=== PATIENT | female | born 1990 | race Caucasian/White ===

== ENCOUNTER 2019-07-30 12:24 | Emergency (ER) | payer OTHER ==
[2019-07-30 12:38] VITALS: PULSE 98; RESP 18; TEMP 98.1
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
[2019-07-30] MEDS ORDERED: SODIUM CHLORIDE 0.9% 1,000 ML IV STA (13:18)
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
[2019-07-30 15:43] VITALS: BP 127/89
== END 2019-07-30 15:40 | disposition home or self-care (01) ==
LOC: EC 12:24
DX: O9A.212 Injury, poisoning and certain other consequences of external causes complicating pregnancy, second trimester (principal); R10.9 Unspecified abdominal pain; R55 Syncope and collapse; V49.49XA Driver injured in collision with other motor vehicles in traffic accident, initial encounter; Y92.410 Unspecified street and highway as the place of occurrence of the external cause; Z3A.25 25 weeks gestation of pregnancy
CPT/HCPCS: 76805; 99284

== ENCOUNTER 2019-10-30 21:00 | Outpatient (CLI) | payer OTHER ==
[2019-10-30 21:49] LABS: Anisocytosis Slight; Basophils # (A) 0.1 k/uL (0-0.2); Basophils % (A) 1 %; Eosinophils # (A) 0.2 k/uL (0-0.7); Eosinophils % (A) 1 %; HCT 31.3 % (34.0-46.0); HGB 10.2 gm/dL (11.4-16.0); Lymphocytes # (A) 2.4 k/uL (1.0-4.8); Lymphocytes % (A) 18 %; MCH 26.2 pg (25.0-35.0); MCHC 32.6 g/dL (31.0-37.0); MCV 80.4 fL (80.0-100.0); Mean Platelet Volume 7.5; Monocytes # (A) 0.6 k/uL (0-1.0); Monocytes % (A) 4 %; Neutrophils # (A) 9.8 k/uL (1.3-7.7); Neutrophils % (A) 75 %; Platelet Count 250 k/uL (150-450); RDW 16.7 % (11.5-15.5); WBC 13.1 k/uL (3.8-10.6)
[2019-10-30 21:56] LABS: ALT 10 U/L (4-34); AST 22 U/L (14-36); African American GFR (CKD) >90 (>60 ml/min/1.73 sqM); Blood Urea Nitrogen 6 mg/dL (7-17); LDH 446 U/L (313-618); Non-African American GFR(CKD) >90 (>60 ml/min/1.73 sqM); Uric Acid 5.9 mg/dL (3.7-7.4)
[2019-10-30 22:02] LABS: Appearance,Urine Clear (Clear); Bacteria,Urine Rare /hpf; Bilirubin,Urine Negative (Negative); Blood,Urine Trace (Negative); Color,Urine Yellow; Glucose,Urine (UA) Negative (Negative); Ketones,Urine Negative (Negative); Leukocyte Esterase,Urine Moderate (Negative); Mucus,Urine Rare /hpf; Nitrite,Urine Negative (Negative); Protein,Urine Trace (Negative); RBC,Urine 7 /hpf (0-5); Specific Gravity,Urine 1.012 (1.001-1.035); Squamous Epithelial Cell,Urine 3 /hpf (0-4); Urobilinogen,Urine <2.0 mg/dL (<2.0); WBC,Urine 8 /hpf (0-5)
[2019-10-30 22:33] VITALS: BP 123/100; PULSE 96; RESP 16
[2019-10-30 22:34] VITALS: TEMP 97.7
[2019-10-30 22:48] LABS: Protein/Creatinine Ratio,Urine 0.175
--- NOTE | 2019-11-16 11:41 | P.MSEPDOC ---
Presenting Problems - Arrival Data Date of Arrival on Unit: 10/30/19 Time of Arrival on Unit: 21:00 Mode of Transport: Ambulatory - Complaint OB-Reason for Admission/Chief Complaint: Possible Onset of Labor Comment: Patient presents for Rule out labor, unable to verbalize frequency in contractions, but that she has been uncomfortable all day. Medical History - Information : 2 Para: 1 Term: 1 : 0 Abortions: Spontaneous or Elective: 0 Number of Living Children: 1 - Gestational Age Gestational Age by LOURDES (wks/days): 38 Weeks and 2 Days - History Comment: Patient has a history of pre-eclampsia with her last Review of Systems - Review of Systems Constitutional: No problems Breast: No problems ENT: No problems Cardiovascular: No problems Respiratory: No problems Gastrointestinal: No problems Genitourinary: No problems Musculoskeletal: No problems Neurological: No problems Skin: No problems Vital Signs - Temperature Temperature: 97.7 F Temperature Source: Temporal Artery Scan - Pulse Pulse Oximetery Pulse Rate: 96 Pulse Assessment Method: Automatic Cuff - Respirations Respiratory Rate: 16 Oxygen Delivery Method: Room Air - Blood Pressure Sitting Blood Pressure: 123/100 Blood Pressure Mean: 107 Blood Pressure Source: Automatic Cuff Medical Screen Scoring (Pre) - Cervical Exam Dilation: 1-3 cm = 1 Membranes: Intact - Uterine Contractions Frequency: > 5 minutes apart = 1 Duration: > 40 seconds = 2 Intensity: N/A - Maternal Vital Signs Maternal Temperature: N/A Maternal Blood Pressure: Diastolic > 89 = 1 Signs of Preeclampsia: Headache = 1 Maternal Respirations: N/A - Maternal Trauma Maternal Trauma: N/A - Assessment - Baby A Baseline FHR: 135 Heart Rate - NICHD Category: Category I (Normal) = 0 NST: Reactive Position: N/A Station: N/A - Total Score - Baby A Total Score - Baby A: 6 - Total Score - Baby B Total Score - Baby B: 6 - Total Score - Baby C Total Score - Baby C: 6 - Level of Risk - Baby A Level of Risk - Baby A: Medium (6-9) - Level of Risk - Baby B Level of Risk - Baby B: Medium (6-9) - Level of Risk - Baby C Level of Risk - Baby C: Medium (6-9) Physician Notification (Pre) - Physician Notified Physician Notified Date: 10/30/19 Physician Notified Time: 21:22 New Order Received: Yes - Notification Comment Comment: Orders given to perform serial blood pressures, draw PIH labs, call physician with report, at 2211 orders given to discharge patient home with instructions, instruct patient on pre-eclampsia precautions, and to have patient call the office tomorrow to schedule an appt for thursday for a blood pressure check. Disposition - Disposition OB Disposition: Discharge to home, Written follow up instructions reviewed Discharge Date: 10/30/19 Discharge Time: 22:25 I agree with the RN Medical Screening Exam: Yes Risk & Benefit of care provided described in d/c instruction: Yes Diagnosis: OTHER SPECIFIED COMPLICATIONS OF LABOR AND DELIVERY
== END 2019-10-30 22:25 | disposition home or self-care (01) ==
LOC: FBPOP 21:00
PROVIDERS: ATTEND Obstetrics & Gynecology Obstetrics
DX: O75.89 Other specified complications of labor and delivery (principal); Z3A.38 38 weeks gestation of pregnancy
CPT/HCPCS: 59025; 82570; 84156; 82565; 83615; 84450; 84460; 84520; 84550; 85025; 81001; G0463; 99215

== ENCOUNTER 2019-11-02 06:01 | Inpatient (IN) | payer OTHER ==
[2019-11-02] MEDS ORDERED: LIDOCAINE 0.5% (PF) 5 MG/ML (50 ML SDV) SQ PRN (06:11)
[2019-11-02] MEDS ORDERED: OXYTOCIN 10 UNIT/ML 1 ML VIAL IM PRN (06:11)
[2019-11-02] MEDS ORDERED: AMPICILLIN 2,000 MG in SODIUM CHLORIDE 0.9% 100 ML IVPB STA (06:11)
[2019-11-02] MEDS ORDERED: CARBOPROST TROMETHAMINE 250 MCG/ML 1 ML AMP IM PRN (06:11)
[2019-11-02] MEDS ORDERED: TERBUTALINE 1 MG/ML VIAL SQ PRN (06:11)
[2019-11-02] MEDS ORDERED: METHYLERGONOVINE 0.2 MG/ML 1 ML AMP IM PRN (06:11)
[2019-11-02] MEDS ORDERED: OXYTOCIN 30 UNITS/500 ML NS 30 UNIT in SALINE 1 500ML.BAG IV SCH (06:15)
[2019-11-02 06:46] LABS: Anisocytosis Slight; Basophils # (A) 0.1 k/uL (0-0.2); Basophils % (A) 1 %; Eosinophils # (A) 0.2 k/uL (0-0.7); Eosinophils % (A) 1 %; HCT 31.3 % (34.0-46.0); Lymphocytes # (A) 2.9 k/uL (1.0-4.8); Lymphocytes % (A) 21 %; MCH 25.8 pg (25.0-35.0); MCV 80.5 fL (80.0-100.0); Mean Platelet Volume 7.5; Monocytes # (A) 0.6 k/uL (0-1.0); Monocytes % (A) 4 %; Neutrophils # (A) 10.2 k/uL (1.3-7.7); Neutrophils % (A) 72 %; Platelet Count 229 k/uL (150-450); RBC 3.89 m/uL (3.80-5.40); RDW 16.6 % (11.5-15.5); WBC 14.1 k/uL (3.8-10.6)
[2019-11-02] MEDS: LACTATED RINGERS 1,000 ML IV SCH ×2 (06:48→11:17)
--- NOTE | 2019-11-02 08:38 | P.HPOB ---
History of Present Illness H&P Date: 11/02/19 Chief Complaint: IUP at 38 and 5/sevenths weeks, gestational hypertension This is a pleasant 28-year-old 3 para 1011 at 38-5/7 weeks that presents to labor and delivery for induction of labor secondary to gestational hypertension. Patient was seen over the weekend with noted elevated blood pressures and a diagnosis of gestational hypertension was made. Patient notes headache in addition. Patient has a history of preeclampsia with her last . Patient has been receiving routine care with myself and has been essentially uncomplicated up to this point. On bloodwork patient has a blood type of B-, rubella immune, hepatitis B surface antigen negative, HIV negative, group beta strep was noted to be positive. Today patient notes good movement she denies loss of fluid or vaginal bleeding. Review of Systems Constitutional: Denies chills, Denies fatigue, Denies fever Ears, nose, mouth and throat: Reports headache Cardiovascular: Reports leg edema Respiratory: Denies dyspnea Gastrointestinal: Denies constipation, Denies diarrhea, Denies nausea, Denies vomiting Genitourinary: Reports Past Medical History Past Medical History: Asthma Additional Past Medical History / Comment(s): anemia kidney stones and kidney failure History of Any Multi-Drug Resistant Organisms: None Reported Additional Past Surgical History / Comment(s): kidneys stone removal Additional Past Anesthesia/Blood Transfusion Reaction / Comment(s): slow to wake up Past Psychological History: Anxiety, Depression Smoking Status: Never smoker Past Alcohol Use History: None Reported Past Drug Use History: None Reported - Past Family History Mother Family Medical History: Diabetes Mellitus, Hypertension Medications and Allergies Home Medications Medication Instructions Recorded Confirmed Type Pnv,Calcium 72/Iron/Folic Acid 1 each PO DAILY 09/08/19 11/02/19 History [ Plus Tablet] Albuterol Inhaler [Ventolin Hfa 1 - 2 puff INHALATION RT-Q6H PRN 11/02/19 11/02/19 History Inhaler] Allergies Allergy/AdvReac Type Severity Reaction Status Date / Time iodine Allergy Swelling Verified 11/02/19 06:11 shellfish derived Allergy Swelling Verified 11/02/19 06:11 Exam Osteopathic Statement: *. No significant issues noted on an osteopathic structural exam other than those noted in the History and Physical/Consult. 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 On cervical exam she is 3/50/-2 station amniotomy is performed and clear fluid is obtained. Results Result Diagrams: 11/02/19 06:35 Abnormal Lab Results - Last 24 Hours (Table) 11/02/19 Range/Units 06:35 WBC 14.1 H (3.8-10.6) k/uL Hgb 10.0 L (11.4-16.0) gm/dL Hct 31.3 L (34.0-46.0) % RDW 16.6 H (11.5-15.5) % Neutrophils # 10.2 H (1.3-7.7) k/uL Assessment and Plan (1) Term Current Visit: Yes Status: Acute Code(s): Z34.90 - ENCNTR FOR SUPRVSN OF NORMAL , UNSP, UNSP TRIMESTER SNOMED Code(s): 80069357 (2) Gestational HTN Current Visit: Yes Status: Acute Code(s): O13.9 - GESTATIONAL HTN W/O SIGNIFICANT PROTEINURIA, UNSP TRIMESTER SNOMED Code(s): 652968235 (3) Positive GBS test Current Visit: Yes Status: Acute Code(s): B95.1 - STREPTOCOCCUS, GROUP B, CAUSING DISEASES CLASSD ELSWHR SNOMED Code(s): 719940942 Plan: Patient is admitted to labor and delivery for induction of labor secondary to gestational hypertension. Pitocin is started per hospital protocol. Patient does desire epidural once contractions are uncomfortable. Anticipate spontaneous vaginal delivery later today.
[2019-11-02] MEDS: BUTORPHANOL 1 MG/ML 1 ML VIAL IV PRN ×2 (09:14→11:12)
[2019-11-02] MEDS: AMPICILLIN 1,000 MG in SODIUM CHLORIDE 0.9% 50 ML IVPB SCH ×2 (10:41→16:48)
[2019-11-02] MEDS ORDERED: fentaNYL (PF) 50 MCG/ML 5 ML AMP ONE (12:24)
[2019-11-02] MEDS ORDERED: SODIUM CHLORIDE 0.9% 100 ML BAG ONE (12:24)
[2019-11-02] MEDS ORDERED: ROPIVACAINE 5MG/ML 20ML VIAL ONE (12:24)
[2019-11-02] MEDS ORDERED: diphenhydrAMINE 50 MG/ML 1 ML VIAL IVP PRN ×2 (14:01)
[2019-11-02] MEDS ORDERED: SIMETHICONE 80 MG CHEWABLE PO PRN (14:01)
[2019-11-02] MEDS ORDERED: HYDROCORTISONE 2.5% RECTAL CREAM 30 GM TUBE RECTAL PRN (14:01)
[2019-11-02] MEDS ORDERED: WITCH HAZEL 1 EACH MED..PAD TOPICAL PRN (14:01)
[2019-11-02] MEDS ORDERED: ZOLPIDEM 5 MG TAB PO PRN (14:01)
[2019-11-02] MEDS ORDERED: HYDROcodone/APAP 5-325MG 1 EACH TAB PO PRN (14:01)
[2019-11-02] MEDS ORDERED: ACETAMINOPHEN TAB 325 MG TAB PO PRN (14:01)
[2019-11-02] MEDS ORDERED: LANOLIN CREAM 5 GM TUBE TOPICAL PRN (14:01)
[2019-11-02] MEDS ORDERED: diphenhydrAMINE 50 MG CAP PO PRN (14:01)
[2019-11-02] MEDS ORDERED: diphenhydrAMINE 25 MG CAP PO PRN (14:01)
[2019-11-02] MEDS ORDERED: BENZOCAINE/MENTHOL SPRAY 1 GM/SPRAY AEROSOL TOPICAL PRN (14:01)
--- NOTE | 2019-11-02 14:01 | P.PROBDLV ---
Vaginal Delivery Note - . Vaginal Delivery Note: This pleasant 28-year-old 3 para 1011 presented to labor and delivery at 38-5/7 weeks for induction of labor secondary to gestational hypertension. Patient had preeclampsia with her prior delivery in addition. Patient was admitted to labor and delivery Pitocin induction of labor was begun per hospital protocol. Patient underwent amniotomy and clear fluid was obtained. Patient became uncomfortable and requested epidural placement. Epidural was placed by the anesthesia department after 2 attempts. Patient progressed to complete began pushing and had normal spontaneous vaginal delivery of a viable female at 1337, weight of 6 lbs. 7 oz. with Apgars of 9 and 9 at one and 5 mins respectively. Patient did sustain a second degree vaginal laceration during delivery this was repaired in the usual fashion with a 3-0 Rapide. After delivery of the placenta a large gush of bleeding was noted therefore Hemabate was ordered/given for uterine uterine atony. A red rubber catheter was then used to drain the bladder reportedly 200 mL of clear yellow urine. The uterus was noted to be firm and below the umbilicus and minimal bleeding was noted. Estimated blood loss 300 mL Patient and infant tolerated delivery well and are resting comfortably
[2019-11-02] MEDS ORDERED: OXYTOCIN 20 UNITS/1000 ML NS 1,000 ML IV SCH (14:15)
[2019-11-02] MEDS: IBUPROFEN 600 MG TAB PO PRN (18:35)
[2019-11-02] MEDS ORDERED: SENNOSIDES-DOCUSATE SODIUM 1 EACH TAB PO SCH (20:00)
[2019-11-03] MEDS: IBUPROFEN 600 MG TAB PO PRN ×2 (00:15→07:58)
[2019-11-03] MEDS ORDERED: Rhogam IMMUNE GLOBULIN 1,500 UNIT/1 ML IM ONE (00:17)
--- NOTE | 2019-11-03 05:46 | P.DS ---
Providers Date of admission: 11/02/19 06:01 Expected date of discharge: 11/03/19 Attending physician: Mei Pablo Primary care physician: Stated None - Discharge Diagnosis(es) (1) Term Current Visit: Yes Status: Acute (2) Gestational HTN Current Visit: Yes Status: Acute (3) Positive GBS test Current Visit: Yes Status: Acute (4) Status post vaginal delivery Current Visit: Yes Status: Acute Hospital Course: This is a pleasant 28-year-old 3 para 1011 at 38-5/7 weeks that presents to labor and delivery for induction of labor secondary to gestational hypertension. Patient has a history of preeclampsia with her prior . Patient's care has been essentially uncomplicated up until this point when elevated blood pressures were noted. Patient was admitted to labor and delivery and Pitocin induction of labor was begun per hospital protocol. Patient underwent amniotomy and clear fluid was obtained. Patient progressed through labor eventually becoming comfortable and requesting epidural placement. After 2 attempts epidural was placed without difficulty by the anesthesia department. Patient progressed through labor became complete began pushing and had a normal spontaneous vaginal delivery of a viable female infant at 1337, weight of 6 lbs. 7 oz. with Apgars of 9 and 9 at one and 5 minutes respectively. Patient did sustain a second-degree vaginal laceration which was repaired in the usual fashion with 3-0 Rapide. Patient's post course has been uneventful. She is ambulating and voiding without difficulty. She is breast- feeding without difficulty. She states her pain is well-controlled. She does wish discharge home at 24 hours if the infant is to discharge at the same time. Patient Condition at Discharge: Good Plan - Discharge Summary New Discharge Prescriptions: No Action Pnv,Calcium 72/Iron/Folic Acid [ Plus Tablet] 1 each PO DAILY Albuterol Inhaler [Ventolin Hfa Inhaler] 1 - 2 puff INHALATION RT-Q6H PRN PRN Reason: Shortness Of Breath Discharge Medication List Pnv,Calcium 72/Iron/Folic Acid [ Plus Tablet] 1 each PO DAILY 09/08/19 [History] Albuterol Inhaler [Ventolin Hfa Inhaler] 1 - 2 puff INHALATION RT-Q6H PRN 11/02/19 [History] Follow up Appointment(s)/Referral(s): Mei Pablo DO [Doctor of Osteopathic Medicine] - 4 Weeks Patient Instructions/Handouts: Vaginal Delivery (DC), Vaginal Delivery (GEN) Discharge Disposition: HOME SELF-CARE
[2019-11-03 07:58] LABS: Anisocytosis Slight; Basophils # (A) 0.1 k/uL (0-0.2); Basophils % (A) 0 %; Eosinophils # (A) 0.1 k/uL (0-0.7); Eosinophils % (A) 1 %; HCT 25.5 % (34.0-46.0); Hypochromasia Slight; Lymphocytes # (A) 2.6 k/uL (1.0-4.8); Lymphocytes % (A) 19 %; MCH 25.7 pg (25.0-35.0); MCHC 31.8 g/dL (31.0-37.0); MCV 80.7 fL (80.0-100.0); Mean Platelet Volume 7.8; Monocytes # (A) 0.5 k/uL (0-1.0); Monocytes % (A) 4 %; Neutrophils # (A) 10.2 k/uL (1.3-7.7); Neutrophils % (A) 75 %; Platelet Count 199 k/uL (150-450); Poikilocytosis Slight; RBC 3.16 m/uL (3.80-5.40); RDW 16.6 % (11.5-15.5); WBC 13.6 k/uL (3.8-10.6)
[2019-11-03 08:01] LABS: HGB 8.1 gm/dL (11.4-16.0)
[2019-11-03 08:41] VITALS: BP 128/79; PULSE 77; RESP 16; TEMP 97.8
[2019-11-03] MEDS ORDERED: PRENATAL VIT-IRON-FOLIC ACID 1 EACH CAP PO SCH (09:00)
== END 2019-11-03 17:28 | disposition home or self-care (01) | DRG 807 ==
LOC: 4FBP 06:01
PROVIDERS: ADMIT Obstetrics & Gynecology Obstetrics; ATTEND Obstetrics & Gynecology Obstetrics
PROC: 3E0R3BZ Introduction of Anesthetic Agent into Spinal Canal, Percutaneous Approach (ICD-10-PCS; principal; 2019-11-02)
PROC: 00HU33Z Insertion of Infusion Device into Spinal Canal, Percutaneous Approach (ICD-10-PCS; principal; 2019-11-02)
PROC: 3E033VJ Introduction of Other Hormone into Peripheral Vein, Percutaneous Approach (ICD-10-PCS; principal; 2019-11-02)
PROC: 10907ZC Drainage of Amniotic Fluid, Therapeutic from Products of Conception, Via Natural or Artificial Opening (ICD-10-PCS; principal; 2019-11-02)
PROC: 10E0XZZ Delivery of Products of Conception, External Approach (ICD-10-PCS; principal; 2019-11-02)
PROC: 0KQM0ZZ Repair Perineum Muscle, Open Approach (ICD-10-PCS; principal; 2019-11-02)
PROC: 3E0234Z Introduction of Serum, Toxoid and Vaccine into Muscle, Percutaneous Approach (ICD-10-PCS; 2019-11-03)
DX: O13.4 Gestational [pregnancy-induced] hypertension without significant proteinuria, complicating childbirth (principal); Z37.0 Single live birth; J45.909 Unspecified asthma, uncomplicated; O99.824 Streptococcus B carrier state complicating childbirth; O70.1 Second degree perineal laceration during delivery; O62.2 Other uterine inertia; O26.893 Other specified pregnancy related conditions, third trimester; Z67.21 Type B blood, Rh negative; O99.52 Diseases of the respiratory system complicating childbirth; O99.62 Diseases of the digestive system complicating childbirth; K21.9 Gastro-esophageal reflux disease without esophagitis; Z3A.38 38 weeks gestation of pregnancy; Z79.899 Other long term (current) drug therapy; Z87.442 Personal history of urinary calculi; Z86.59 Personal history of other mental and behavioral disorders; Z86.2 Personal history of diseases of the blood and blood-forming organs and certain disorders involving the immune mechanism; Z88.8 Allergy status to other drugs, medicaments and biological substances; Z91.013 Allergy to seafood; Z82.49 Family history of ischemic heart disease and other diseases of the circulatory system; Z83.3 Family history of diabetes mellitus
CPT/HCPCS: 85025; 85461; 86850; 86900; 86901

== ENCOUNTER 2019-11-12 21:22 | Emergency (ER) | payer OTHER ==
[2019-11-12 22:11] VITALS: RESP 16
--- NOTE | 2019-11-12 22:32 | ED ---
General Adult HPI - General Chief complaint: Upper Respiratory Infection Stated complaint: Cough Time Seen by Provider: 11/12/19 21:34 Source: patient, RN notes reviewed, old records reviewed Mode of arrival: ambulatory Limitations: no limitations - History of Present Illness Initial comments: 28-year-old female patient past history significant for asthma as well as having a vaginal delivery 1 week ago presents to ED for chief complaint of cough. Mother reports that her child has a cough which she believes that she quadrant as well. Patient reports that she did have what she describes as early preeclampsia forced induced her prior to her delivery. She reports that she has had cough for the last 3 days since states that after coughing she is short of breath. Patient does report asthma history. Denies abdominal pain, dysuria. Denies any vaginal discharge. Pt reports that the cough is giving her a mild generalized headache, Denies changes in vision, states that chief complaint is cough. Denies any other complaints. Systemic: Pt denies fatigue, fever/chills, rash. Pt denies weakness, night sweats, weight loss. Neuro: Pt denies visual disturbances, syncope or pre-syncope. HEENT: Pt denies ocular discharge or irritation, otalgia, rhinorrhea, pharyngitis or notable lymphadenopathy. Cardiopulmonary: Pt denies chest pain, heart palpitations, dyspnea on exertion. Abdominal/GI: Pt denies abdominal pain, n/v/d. : Pt denies dysuria, burning w/ urination, frequency/urgency. Denies new onset urinary or bowel incontinence. MSK: Pt denies myalgia, loss of strength or function in extremities. Neuro: Pt denies new onset weakness, paresthesias. - Related Data Home Medications Medication Instructions Recorded Confirmed Pnv,Calcium 72/Iron/Folic Acid 1 each PO DAILY 09/08/19 11/02/19 [ Plus Tablet] Albuterol Inhaler [Ventolin Hfa 1 - 2 puff INHALATION RT-Q6H PRN 11/02/19 11/02/19 Inhaler] Previous Rx's Medication Instructions Recorded Albuterol Inhaler [Ventolin Hfa 1 - 2 puff INHALATION Q4-6H PRN #1 11/13/19 Inhaler] inhaler Amoxicillin/Potassium Clav 1 each PO Q12HR 7 Days #14 tab 11/13/19 [Augmentin 875-125 Tablet] Allergies Allergy/AdvReac Type Severity Reaction Status Date / Time iodine Allergy Swelling Verified 11/12/19 21:24 shellfish derived Allergy Swelling Verified 11/12/19 21:24 Review of Systems ROS Statement: Those systems with pertinent positive or pertinent negative responses have been documented in the HPI. ROS Other: All systems not noted in ROS Statement are negative. Past Medical History Past Medical History: Asthma Additional Past Medical History / Comment(s): anemia kidney stones and kidney failure History of Any Multi-Drug Resistant Organisms: None Reported Additional Past Surgical History / Comment(s): kidneys stone removal Additional Past Anesthesia/Blood Transfusion Reaction / Comment(s): slow to wake up Past Psychological History: Anxiety, Depression Smoking Status: Never smoker Past Alcohol Use History: None Reported Past Drug Use History: None Reported - Past Family History Mother Family Medical History: Diabetes Mellitus, Hypertension General Exam - General Exam Comments Initial Comments: Constitutional: NAD, AOX3, Pt has pleasant affect. HEENT: NC/AT, trachea midline, neck supple, no lymphadenopathy. Posterior pharynx non erythematous, without exudates. External ears appear normal, without discharge. Mucous membranes moist. Eyes PERRLA, EOM intact. There is no scleral icterus. No pallor noted. Cardiopulmonary: RRR, no murmurs, rubs or gallops, no JVD noted. Lungs CTAB in anterior and posterior mosley. No peripheral edema. Abdominal exam: Abdomen soft and non-distended. Abdomen non-tender to palpation in all 4 quadrants. Bowel sounds active in LLQ. No hepatosplenomegaly. No ecchymosis Neuro: CN II-XII intact. No nuchal rigidity. No raccon eyes, no bray sign, no hemotympanum. No cervical spinal tenderness. NIH 0. MSK: No posterior calf tenderness bilaterally, homans sign negative bilaterally. Posterior tibialis and radial pulse +2 bilaterally. Sensation intact in upper and lower extremities. Full active ROM in upper and lower extremities, 5/5 stregnth. Limitations: no limitations Course Vital Signs 11/12/19 11/12/19 11/12/19 21:24 22:07 22:10 Temperature 98.3 F Pulse Rate 106 H 102 H Respiratory 18 18 16 Rate Blood Pressure 148/94 120/73 O2 Sat by Pulse 96 98 Oximetry 11/13/19 11/13/19 00:08 00:09 Temperature 98 F 98 F Pulse Rate 100 100 Respiratory 16 16 Rate Blood Pressure 125/78 125/78 O2 Sat by Pulse 98 98 Oximetry Medical Decision Making - Medical Decision Making 28-year-old female patient past history significant for asthma as well as having a vaginal delivery 1 week ago presents to ED for chief complaint of cough. Mother reports that her child has a cough which she believes that she quadrant as well. Patient reports that she did have what she describes as early preeclampsia forced induced her prior to her delivery. She reports that she has had cough for the last 3 days since states that after coughing she is short of breath. Patient does report asthma history. Denies abdominal pain, dysuria. Denies any vaginal discharge. Pt reports that the cough is giving her a mild generalized headache, Denies changes in vision, states that chief complaint is cough. Denies any other complaints. Patient vital signs this displayed mild tachycardia, temp discharge vital signs are stable. Physical exam dentist acute pathology. Lungs are clear to auscultation. Laboratory investigations are obtained. Leukocytosis of 14. D-dimer is negative. UA did reveal 11 red cells 35 white blood cells. Chest x-ray displayed small patchy nodular infiltrate left upper lobe. EKG is nonischemic. Patient be initiated on Augmentin. She'll be discharged to follow up with primary care provider and OB chest every morning tomorrow. Return to ER if condition worsens. Case dsicussed with Dr. Lucero. - Lab Data Result diagrams: 11/12/19 23:10 11/12/19 23:10 Lab Results 11/12/19 11/12/19 11/12/19 Range/Units 23:10 23:10 23:10 WBC 14.1 H (3.8-10.6) k/uL RBC 4.29 (3.80-5.40) m/uL Hgb 10.8 L (11.4-16.0) gm/dL Hct 34.5 (34.0-46.0) % MCV 80.5 (80.0-100.0) fL MCH 25.3 (25.0-35.0) pg MCHC 31.4 (31.0-37.0) g/dL RDW 16.1 H (11.5-15.5) % Plt Count 336 (150-450) k/uL Neutrophils % 75 % Lymphocytes % 17 % Monocytes % 4 % Eosinophils % 2 % Basophils % 1 % Neutrophils # 10.6 H (1.3-7.7) k/uL Lymphocytes # 2.4 (1.0-4.8) k/uL Monocytes # 0.6 (0-1.0) k/uL Eosinophils # 0.3 (0-0.7) k/uL Basophils # 0.1 (0-0.2) k/uL Hypochromasia Slight Anisocytosis Slight D-Dimer 0.49 (<0.60) mg/L FEU Sodium 137 (137-145) mmol/L Potassium 4.1 (3.5-5.1) mmol/L Chloride 104 (98-107) mmol/L Carbon Dioxide 21 L (22-30) mmol/L Anion Gap 12 mmol/L BUN 10 (7-17) mg/dL Creatinine 0.69 (0.52-1.04) mg/dL Est GFR (CKD-EPI)AfAm >90 (>60 ml/min/1.73 sqM) Est GFR (CKD-EPI)NonAf >90 (>60 ml/min/1.73 sqM) Glucose 110 H (74-99) mg/dL Calcium 9.5 (8.4-10.2) mg/dL Total Bilirubin 0.5 (0.2-1.3) mg/dL AST 28 (14-36) U/L ALT 21 (4-34) U/L Alkaline Phosphatase 128 H (38-126) U/L Troponin I (0.000-0.034) ng/mL Total Protein 7.7 (6.3-8.2) g/dL Albumin 4.2 (3.5-5.0) g/dL Urine Color Urine Appearance (Clear) Urine pH (5.0-8.0) Ur Specific [place] (1.001-1.035) Urine Protein (Negative) Urine Glucose (UA) (Negative) Urine Ketones (Negative) Urine Blood (Negative) Urine Nitrite (Negative) Urine Bilirubin (Negative) Urine Urobilinogen (<2.0) mg/dL Ur Leukocyte Esterase (Negative) Urine RBC (0-5) /hpf Urine WBC (0-5) /hpf Ur Squamous Epith Cells (0-4) /hpf Urine Bacteria (None) /hpf Urine Mucus (None) /hpf 11/12/19 11/13/19 Range/Units 23:10 00:09 WBC (3.8-10.6) k/uL RBC (3.80-5.40) m/uL Hgb (11.4-16.0) gm/dL Hct (34.0-46.0) % MCV (80.0-100.0) fL MCH (25.0-35.0) pg MCHC (31.0-37.0) g/dL RDW (11.5-15.5) % Plt Count (150-450) k/uL Neutrophils % % Lymphocytes % % Monocytes % % Eosinophils % % Basophils % % Neutrophils # (1.3-7.7) k/uL Lymphocytes # (1.0-4.8) k/uL Monocytes # (0-1.0) k/uL Eosinophils # (0-0.7) k/uL Basophils # (0-0.2) k/uL Hypochromasia Anisocytosis D-Dimer (<0.60) mg/L FEU Sodium (137-145) mmol/L Potassium (3.5-5.1) mmol/L Chloride (98-107) mmol/L Carbon Dioxide (22-30) mmol/L Anion Gap mmol/L BUN (7-17) mg/dL Creatinine (0.52-1.04) mg/dL Est GFR (CKD-EPI)AfAm (>60 ml/min/1.73 sqM) Est GFR (CKD-EPI)NonAf (>60 ml/min/1.73 sqM) Glucose (74-99) mg/dL Calcium (8.4-10.2) mg/dL Total Bilirubin (0.2-1.3) mg/dL AST (14-36) U/L ALT (4-34) U/L Alkaline Phosphatase (38-126) U/L Troponin I <0.012 (0.000-0.034) ng/mL Total Protein (6.3-8.2) g/dL Albumin (3.5-5.0) g/dL Urine Color Yellow Urine Appearance Clear (Clear) Urine pH 6.5 (5.0-8.0) Ur Specific [place] 1.012 (1.001-1.035) Urine Protein Trace H (Negative) Urine Glucose (UA) Negative (Negative) Urine Ketones Negative (Negative) Urine Blood Moderate H (Negative) Urine Nitrite Negative (Negative) Urine Bilirubin Negative (Negative) Urine Urobilinogen <2.0 (<2.0) mg/dL Ur Leukocyte Esterase Large H (Negative) Urine RBC 11 H (0-5) /hpf Urine WBC 35 H (0-5) /hpf Ur Squamous Epith Cells 3 (0-4) /hpf Urine Bacteria Rare H (None) /hpf Urine Mucus Rare H (None) /hpf - EKG Data -: EKG Interpreted by Me (and Dr. Lucero) EKG Comments: Ventricular rate 86, MN interval 138, QRS 90, QT/QTC 368/440. Normal sinus rhythm, normal EKG, no concern for acute ischemia. Disposition Clinical Impression: Community acquired pneumonia Disposition: HOME SELF-CARE Condition: Stable Instructions (If sedation given, give patient instructions): Community Acquired Pneumonia (ED) Additional Instructions: Take antibiotics as directed. Follow up with primary care provider tomorrow. Return to ER if condition worsens in any way. Prescriptions: Amoxicillin/Potassium Clav [Augmentin 875-125 Tablet] 1 each PO Q12HR 7 Days #14 tab Albuterol Inhaler [Ventolin Hfa Inhaler] 1 - 2 puff INHALATION Q4-6H PRN #1 inhaler PRN Reason: Cough Is patient prescribed a controlled substance at d/c from ED?: No Referrals: Dmitriy Ramos MD [Primary Care Provider] - 1-2 days
--- NOTE | 2019-11-12 22:48 | XR ---
EXAMINATION TYPE: XR chest 2V DATE OF EXAM: 11/12/2019 COMPARISON: NONE HISTORY: Cough TECHNIQUE: 2 views FINDINGS: Heart and mediastinum are normal. There is a mild nodular infiltrate in the lateral left up per lobe. The other lung mosley are clear. There are no hilar masses. There is no pleural effusion. B shaina thorax is intact. IMPRESSION: Small patch of nodular infiltrate left upper lobe measures overall 4 x 2 cm. Normal heart .
[2019-11-12 23:19] LABS: Anisocytosis Slight; Basophils # (A) 0.1 k/uL (0-0.2); Basophils % (A) 1 %; Eosinophils # (A) 0.3 k/uL (0-0.7); Eosinophils % (A) 2 %; HCT 34.5 % (34.0-46.0); HGB 10.8 gm/dL (11.4-16.0); Hypochromasia Slight; Lymphocytes # (A) 2.4 k/uL (1.0-4.8); Lymphocytes % (A) 17 %; MCH 25.3 pg (25.0-35.0); MCHC 31.4 g/dL (31.0-37.0); MCV 80.5 fL (80.0-100.0); Mean Platelet Volume 7.7; Monocytes # (A) 0.6 k/uL (0-1.0); Monocytes % (A) 4 %; Neutrophils # (A) 10.6 k/uL (1.3-7.7); Neutrophils % (A) 75 %; Platelet Count 336 k/uL (150-450); RBC 4.29 m/uL (3.80-5.40); RDW 16.1 % (11.5-15.5); WBC 14.1 k/uL (3.8-10.6)
[2019-11-12 23:34] LABS: ALT 21 U/L (4-34); AST 28 U/L (14-36); African American GFR (CKD) >90 (>60 ml/min/1.73 sqM); Albumin 4.2 g/dL (3.5-5.0); Alkaline Phosphatase 128 U/L (38-126); Anion Gap 12 mmol/L; Blood Urea Nitrogen 10 mg/dL (7-17); Calcium 9.5 mg/dL (8.4-10.2); Carbon Dioxide 21 mmol/L (22-30); Chloride 104 mmol/L (98-107); Glucose 110 mg/dL (74-99); Non-African American GFR(CKD) >90 (>60 ml/min/1.73 sqM); Potassium 4.1 mmol/L (3.5-5.1); Sodium 137 mmol/L (137-145); Total Bilirubin 0.5 mg/dL (0.2-1.3); Total Protein 7.7 g/dL (6.3-8.2)
[2019-11-12] MEDS ORDERED: AMOXIC-POT CLAV 875-125MG 1 EACH TAB PO STA (23:36)
[2019-11-12] MEDS ORDERED: AMOXIC-POT CLAV 875MG STARTER PACK 2 TAB BTL PO STA (23:36)
[2019-11-13 00:09] VITALS: BP 125/78; PULSE 100; TEMP 98
[2019-11-13 00:17] LABS: Appearance,Urine Clear (Clear); Bacteria,Urine Rare /hpf; Bilirubin,Urine Negative (Negative); Blood,Urine Moderate (Negative); Color,Urine Yellow; Glucose,Urine (UA) Negative (Negative); Ketones,Urine Negative (Negative); Leukocyte Esterase,Urine Large (Negative); Mucus,Urine Rare /hpf; Nitrite,Urine Negative (Negative); PH, Urine 6.5 (5.0-8.0); Protein,Urine Trace (Negative); RBC,Urine 11 /hpf (0-5); Specific Gravity,Urine 1.012 (1.001-1.035); Squamous Epithelial Cell,Urine 3 /hpf (0-4); Urobilinogen,Urine <2.0 mg/dL (<2.0); WBC,Urine 35 /hpf (0-5)
== END 2019-11-13 00:29 | disposition home or self-care (01) ==
LOC: EC 21:22
DX: O99.53 Diseases of the respiratory system complicating the puerperium (principal); J18.9 Pneumonia, unspecified organism; O99.13 Other diseases of the blood and blood-forming organs and certain disorders involving the immune mechanism complicating the puerperium; D72.829 Elevated white blood cell count, unspecified; O90.89 Other complications of the puerperium, not elsewhere classified; R00.0 Tachycardia, unspecified; R31.9 Hematuria, unspecified; R82.81 Pyuria; J45.909 Unspecified asthma, uncomplicated; Z91.013 Allergy to seafood; Z91.048 Other nonmedicinal substance allergy status; Z79.899 Other long term (current) drug therapy; Z82.49 Family history of ischemic heart disease and other diseases of the circulatory system
CPT/HCPCS: 36415; 71046; 80053; 81001; 84484; 85025; 85379; 87077; 87086; 87186; 93005; 99285

== ENCOUNTER → 2020-02-13 | Outpatient (CLI) | payer OTHER ==
[~2020-02-13] MED LIST: ACETAMINOPHEN TAB 500 MG TAB ONE
[2020-02-13 08:53] LABS: Anisocytosis Slight; Basophils % (A) 0 %; Eosinophils # (A) 0.3 k/uL (0-0.7); Eosinophils % (A) 2 %; HCT 35.6 % (34.0-46.0); HGB 11.2 gm/dL (11.4-16.0); Hypochromasia Marked; Lymphocytes # (A) 3.5 k/uL (1.0-4.8); Lymphocytes % (A) 29 %; MCHC 31.6 g/dL (31.0-37.0); Mean Platelet Volume 7.2; Microcytosis Slight; Monocytes # (A) 0.5 k/uL (0-1.0); Monocytes % (A) 4 %; Neutrophils # (A) 7.6 k/uL (1.3-7.7); Neutrophils % (A) 64 %; Platelet Count 309 k/uL (150-450); RBC 4.68 m/uL (3.80-5.40); RDW 16.4 % (11.5-15.5)
== END | disposition home or self-care (01) ==
LOC: LABPAT 08:22
PROVIDERS: ATTEND Obstetrics & Gynecology Obstetrics
DX: Z01.818 Encounter for other preprocedural examination (principal)
CPT/HCPCS: 36415; 85025

== ENCOUNTER 2020-02-14 07:56 | Day surgery (SDC) | payer OTHER ==
[2020-02-13 08:56] VITALS: BMI 38.2
--- NOTE | 2020-02-13 10:24 | P.HPOB ---
History of Present Illness H&P Date: 02/13/20 Chief Complaint: undesired fertility This is a that presents for permanent sterilization with tubal ligation. she states she is done with childbearing and desires tubal ligation. she recently has a of a healthy female on 11/01. Review of Systems Constitutional: Denies chills, Denies fatigue, Denies fever Ears, nose, mouth and throat: Denies headache Cardiovascular: Denies edema Respiratory: Denies dyspnea Gastrointestinal: Denies nausea, Denies vomiting Genitourinary: Denies Past Medical History Past Medical History: Asthma, GERD/Reflux Additional Past Medical History / Comment(s): anemia, Hx kidney stones and ki dney failure x2, IBS, herniated discs. History of Any Multi-Drug Resistant Organisms: None Reported Additional Past Surgical History / Comment(s): kidneys stone removal Past Anesthesia/Blood Transfusion Reactions: Previous Problems w/ Anesthesia Additional Past Anesthesia/Blood Transfusion Reaction / Comment(s): slow to wake up Past Psychological History: Anxiety Smoking Status: Former smoker Past Alcohol Use History: Occasional Additional Past Alcohol Use History / Comment(s): quit 5 yrs ago (2014), started smoking age 17, smoked 1-2 cigarettes/day. Past Drug Use History: None Reported - Past Family History Mother Family Medical History: Diabetes Mellitus, Hypertension Medications and Allergies Home Medications Medication Instructions Recorded Confirmed Type Pnv,Calcium 72/Iron/Folic Acid 1 each PO DAILY 09/08/19 11/02/19 History [ Plus Tablet] Albuterol Inhaler (Mhu) [Ventolin 1 - 2 puff INHALATION RT-Q6H PRN 11/02/19 11/02/19 History Hfa Inhaler] Albuterol Inhaler (Mhu) [Ventolin 1 - 2 puff INHALATION Q4-6H PRN #1 11/13/19 Rx Hfa Inhaler (Mhu)] inhaler Amoxicillin/Potassium Clav 1 each PO Q12HR 7 Days #14 tab 11/13/19 Rx [Augmentin 875-125 Tablet] Allergies Allergy/AdvReac Type Severity Reaction Status Date / Time iodine Allergy Swelling Verified 02/13/20 08:33 shellfish derived Allergy Swelling Verified 02/13/20 08:33 Exam Osteopathic Statement: *. No significant issues noted on an osteopathic structural exam other than those noted in the History and Physical/Consult. Intake and Output 02/12/20 02/13/20 02/13/20 22:59 06:59 14:59 Other: Weight 104.326 kg targeted PE in general this is a well nourished well developed female in NAD, breathing is noted to be non labored and heart has a RRR, abdomen is soft and non tender, on exam external genitalia is normal for age, vagina is pink and well rugated, no leions or masses, cervix appears healthy and no adnexal masses are appreciated. Assessment and Plan (1) Family planning Status: Acute Code(s): Z30.09 - ENCOUNTER FOR OTH GENERAL CNSL AND ADVICE ON CONTRACEPTION SNOMED Code(s): 215845814 Plan: plan LTL with filschie clips, risk reviewed including but not limited to infection bleeding damage to bladder bowel or ureteric injury discussed and she states understanding. failure rates reviewed, she understand is she misses a menses and has a positive UCG she needs to be seen and evaluated.
[~2020-02-14 07:56] MED LIST changes: -ACETAMINOPHEN TAB 500 MG TAB ONE; +DEXAMETHASONE SOD PHOSPHATE 10 MG/ML 1 ML VIAL IV ONE; +HYDROmorphone 0.5 MG/0.5 ML SYRINGE IVP PRN; +LACTATED RINGERS 1,000 ML IV SCH; +ONDANSETRON 4 MG/2 ML VIAL IVP ONE; +ONDANSETRON 4 MG/2 ML VIAL IVP PRN; +Pre Op ABX Message 1 EACH MISC MISCELLANE ONE; +SCOPOLAMINE 1.5MG/72HR PATCH TRANSDERM ONE; +fentaNYL (PF) 50 MCG/ML 2 ML AMP IV PRN
[2020-02-14] MEDS ORDERED: LIDOCAINE 1% (10MG/ML) FOR IV START INTRADERMA ONE (08:26)
[2020-02-14] MEDS ORDERED: ONDANSETRON 4 MG/2 ML VIAL ONE (08:28)
[2020-02-14] MEDS ORDERED: KETOROLAC 30 MG/ML 1 ML VIAL ONE (10:10)
[2020-02-14] MEDS ORDERED: NEOSTIGMINE 1 MG/ML 10 ML VIAL ONE (10:10)
[2020-02-14] MEDS ORDERED: PROPOFOL 10 MG/ML 20 ML VIAL IV ONE (10:10)
[2020-02-14] MEDS ORDERED: ROCURONIUM BROMIDE 10 MG/ML 5 ML VIAL IV ONE (10:10)
[2020-02-14] MEDS ORDERED: GLYCOPYRROLATE 0.2 MG/ML 2 ML VIAL ONE (10:10)
[2020-02-14] MEDS ORDERED: MIDAZOLAM 2 MG/2 ML VIAL ONE (10:10)
[2020-02-14] MEDS ORDERED: SUCCINYLCHOLINE CHLORIDE 100 MG/5 ML SYR IV ONE (10:10)
[2020-02-14] MEDS ORDERED: LIDOCAINE 1% INJ 10MG/ML (20 ML MDV) ONE (10:10)
[2020-02-14] MEDS ORDERED: fentaNYL (PF) 50 MCG/ML 2 ML AMP ONE (10:10)
[2020-02-14] MEDS ORDERED: BUPIVACAINE (PF) 0.25% 30 ML VIAL SQ ONE ×2 (10:34→10:45)
--- NOTE | 2020-02-14 11:00 | P.OP ---
Date of Procedure: 02/14/20 Preoperative Diagnosis: Undesired fertility, family status complete Postoperative Diagnosis: Same Procedure(s) Performed: Deputy Sheriff scope tubal ligation with Filshie clips Anesthesia: GETA Surgeon: Mei Pablo Estimated Blood Loss (ml): 5 IV fluids (ml): 500 Urine output (ml): 50 Pathology: none sent Condition: stable Disposition: PACU Indications for Procedure: Patient desires permanent sterilization Operative Findings: Normal pelvic anatomy is grossly appreciated Description of Procedure: Patient is seen in the preoperative area and procedures reviewed. Patient states she desires definitive sterilization. Patient was taken back to the operating suite where general anesthesia was obtained without difficulty by the anesthesia department. She was prepped and draped in the normal sterile fashion in the dorsal lithotomy position [place]nee catheter was then used to drain the bladder clear yellow urine. A weighted speculum was placed in the posterior vaginal vault. the anterior lip of the cervix was then visualized, grasped with a single-tooth tenaculum and the acorn uterine manipulator was advanced into the cervix as a means to manipulate the uterus throughout the procedure. Attention was then turned to the patient's abdomen where in the umbilical fold a small skin incision is made. Through this incision the Veress needle was placed. Once the Veress needle was deemed to be in the appropriate position with a drop of CO2 pressure with the insufflation of CO2 gas CO2 insufflation was allowed to occur. 3 L of gas was used to obtain pneumoperitoneum. A 5 mm trocar and sleeve with the laparoscope in place was then placed through the skin incision toward the pneumoperitoneum under direct visualization. The above- noted findings are visualized. An additional port site is placed in the right mid abdomen under direct visualization. At this time the Filshie clip applicator was placed through the trocar the fallopian tube is visualized grasped and occluded with the Filshie clip this was then repeated on the opposite side. Both clips are noted to be occluding the fallopian tubes. Pictures are taken. All instruments were then removed from the patient's abdomen the trochars are removed and the skin incisions are closed with 4-0 Vicryl in a subcuticular fashion. Steri-Strips and sterile dressings are applied. Attention was then turned to the patient's vaginal vault where the single-tooth tenaculum was taken off of the interval of the cervix is small amount of bleeding is noted. The acorn uterine manipulator is removed. After a small amount of pressure hemostasis was appreciated. All counts were noted to be correct 2. Patient tolerated procedure well.
[2020-02-14 11:13] VITALS: TEMP 97
[2020-02-14 11:18] VITALS: RESP 16
[2020-02-14 12:21] VITALS: BP 131/87; PULSE 68
[2020-02-14] MEDS ORDERED: ACETAMINOPHEN TAB 500 MG TAB PO ONE (12:23)
== END 2020-02-14 13:12 | disposition home or self-care (01) ==
LOC: OR 07:56
PROVIDERS: ATTEND Obstetrics & Gynecology Obstetrics
DX: Z30.2 Encounter for sterilization (principal); J45.909 Unspecified asthma, uncomplicated; F41.9 Anxiety disorder, unspecified; K21.9 Gastro-esophageal reflux disease without esophagitis; K58.9 Irritable bowel syndrome, unspecified; D64.9 Anemia, unspecified; Z91.041 Radiographic dye allergy status; Z79.899 Other long term (current) drug therapy; Z91.013 Allergy to seafood; Z87.891 Personal history of nicotine dependence; Z87.442 Personal history of urinary calculi; Z82.49 Family history of ischemic heart disease and other diseases of the circulatory system; Z83.3 Family history of diabetes mellitus
CPT/HCPCS: 81025; 58671; J2250; J1100; J2710; J2405; J2001; J3010; J1885; J0330; J2704

== ENCOUNTER 2020-11-27 10:04 | Emergency (ER) | payer OTHER ==
[2020-11-27 10:19] VITALS: BP 134/94; PULSE 78; RESP 18; TEMP 98
--- NOTE | 2020-11-27 12:21 | XR ---
EXAMINATION TYPE: XR ankle complete bilateral DATE OF EXAM: 11/27/2020 COMPARISON: NONE HISTORY: Pain FINDINGS: Three views of the ankle demonstrate the ankle mortise to be intact and symmetric. The joint spaces are preserved. The osseous structures are intact. Tiny densities adjacent to lateral malleolus of t he right ankle. Tiny spurs involving the calcaneus bilaterally. IMPRESSION: 1. Tiny bony densities adjacent to the right lateral malleolus too small to characterize could be chr onic correlate with point tenderness to exclude a tiny avulsion fracture. 2. Bilateral tiny calcaneal spurs.
[2020-11-27] MEDS ORDERED: KETOROLAC 15 MG/ML 1 ML VIAL IM STA (12:58)
--- NOTE | 2020-11-27 13:07 | ED ---
Lower Extremity Injury HPI - General Chief Complaint: Extremity Injury, Lower Stated Complaint: Fall, ankle injury Time Seen by Provider: 11/27/20 12:47 Source: patient, family, RN notes reviewed Mode of arrival: ambulatory Limitations: no limitations - History of Present Illness Initial Comments: Patient is a 29-year-old female that presents to emergency room after tripping on a curb and rolling both wrinkles in falling with her 1-year-old daughter and her arms. She notes that she did manage to catch most of her daughter's body weight. But she does note that she did sprain her left ankle but she is more concerned about her right foot and great toe. She notes that her right great toe and anterior aspect of her foot is numb and tingly and has mild decrease in sensation. She denies any right ankle pain. She states the pain is moderate to severe would like some pain medication. She did say that she has some decreased range of motion secondary to pain in that right ankle area and she denied any loss of consciousness headache nausea vomiting diarrhea constipation fever fatigue chills decreased strength. - Related Data Home Medications Medication Instructions Recorded Confirmed No Known Home Medications 11/27/20 11/27/20 Allergies Allergy/AdvReac Type Severity Reaction Status Date / Time iodine Allergy Swelling Verified 11/27/20 13:22 shellfish derived Allergy Swelling Verified 11/27/20 13:22 Review of Systems ROS Statement: Those systems with pertinent positive or pertinent negative responses have been documented in the HPI. ROS Other: All systems not noted in ROS Statement are negative. Past Medical History Past Medical History: Asthma Additional Past Medical History / Comment(s): anemia kidney stones and kidney failure History of Any Multi-Drug Resistant Organisms: None Reported Past Surgical History: Tubal Ligation Additional Past Surgical History / Comment(s): kidneys stone removal Additional Past Anesthesia/Blood Transfusion Reaction / Comment(s): slow to wake up Past Psychological History: Anxiety, Depression Smoking Status: Never smoker Past Alcohol Use History: None Reported - Past Family History Mother Family Medical History: Diabetes Mellitus, Hypertension General Exam Limitations: no limitations General appearance: alert, in no apparent distress, obese Head exam: Present: atraumatic, normocephalic, normal inspection Eye exam: Present: normal appearance, PERRL, EOMI. Absent: scleral icterus, conjunctival injection, periorbital swelling Neck exam: Present: normal inspection. Absent: tenderness, meningismus, lymphadenopathy Respiratory exam: Present: normal lung sounds bilaterally. Absent: respiratory distress, wheezes, rales, rhonchi, stridor Cardiovascular Exam: Present: regular rate, normal rhythm, normal heart sounds. Absent: systolic murmur, diastolic murmur, rubs, gallop, clicks GI/Abdominal exam: Present: soft, normal bowel sounds. Absent: distended, tenderness, guarding, rebound, rigid Extremities exam: Present: normal inspection, normal capillary refill. Absent: full ROM (Decreased range of motion of right ankle and right great toe secondary to pain.), tenderness, pedal edema, joint swelling, calf tenderness Neurological exam: Present: alert, oriented X3, CN II-XII intact Psychiatric exam: Present: normal affect, normal mood Skin exam: Present: warm, dry, intact, normal color. Absent: rash Course Vital Signs 11/27/20 10:15 Temperature 98.0 F Pulse Rate 78 Respiratory 18 Rate Blood Pressure 134/94 O2 Sat by Pulse 99 Oximetry Medical Decision Making - Medical Decision Making 29-year-old female complaining of bilateral ankle pain, but mostly right foot and great toe pain. Bilateral ankle x-rays, x-ray of the right foot ordered. 15 mg of Toradol ordered. Case discussed with Dr. Quiros, patient will be given a postop shoe with follow-up to orthopedics as needed. Patient declined the need for crutches as she has not been successful with using them in the past. - Radiology Data Radiology results: report reviewed, image reviewed Right foot x-ray: Minimally displaced fracture at the base of the proximal phalanx right great toe with intra-articular extension mild soft tissue swelling appreciated. No additional fractures are noted. Disposition Clinical Impression: Fracture of right great toe Disposition: HOME SELF-CARE Condition: Stable Instructions (If sedation given, give patient instructions): Toe Fracture (ED) Additional Instructions: Please return to the Emergency Department if symptoms worsen or any other concerns. Follow-up with primary care in 3-5 days. Follow-up with orthopedics at your convenience. Weightbearing as tolerated, use as tolerated. [id number] pain medication for symptom medic control. Is patient prescribed a controlled substance at d/c from ED?: No Referrals: Dmitriy Ramos MD [Primary Care Provider] - 1-2 days Time of Disposition: 14:42
--- NOTE | 2020-11-27 13:55 | XR ---
EXAMINATION TYPE: XR foot complete RT DATE OF EXAM: 11/27/2020 CLINICAL HISTORY: pain TECHNIQUE: Frontal, lateral and oblique images of the right foot are obtained. COMPARISON: None. FINDINGS: Minimally displaced fracture at the base of the proximal phalanx right great toe with intra -articular extension. Mild soft tissue swelling appreciated. No additional fractures are noted. IMPRESSION: As above ICD 10 closed FRACTURE, INITIAL EVALUATION
== END 2020-11-27 14:56 | disposition home or self-care (01) ==
LOC: EC 10:04
DX: S92.411A Displaced fracture of proximal phalanx of right great toe, initial encounter for closed fracture (principal); M25.572 Pain in left ankle and joints of left foot; Z91.048 Other nonmedicinal substance allergy status; Z91.013 Allergy to seafood; W10.1XXA Fall (on)(from) sidewalk curb, initial encounter; Y92.009 Unspecified place in unspecified non-institutional (private) residence as the place of occurrence of the external cause
CPT/HCPCS: 73610; 73630; 99283; 96372; J1885

== ENCOUNTER 2022-02-24 23:01 | Emergency (ER) | payer OTHER ==
[2022-02-24 23:18] VITALS: RESP 20
[2022-02-25] MEDS ORDERED: KETOROLAC 15 MG/ML 1 ML VIAL IVP STA (01:37)
[2022-02-25] MEDS ORDERED: SODIUM CHLORIDE 0.9% 1,000 ML IV STA (01:37)
[2022-02-25] MEDS ORDERED: ONDANSETRON 4 MG/2 ML VIAL IVP STA (01:37)
[2022-02-25 02:18] LABS: HCT 40.8 % (34.0-46.0); HGB 13.6 gm/dL (11.4-16.0); MCV 83.4 fL (80.0-100.0); RBC 4.89 m/uL (3.80-5.40); WBC 8.8 k/uL (3.8-10.6)
[2022-02-25 02:19] LABS: Basophils # (A) 0.1 k/uL (0-0.2); Basophils % (A) 1 %; Eosinophils # (A) 0.1 k/uL (0-0.7); Eosinophils % (A) 1 %; Lymphocytes # (A) 0.5 k/uL (1.0-4.8); Lymphocytes % (A) 6 %; MCH 27.8 pg (25.0-35.0); MCHC 33.3 g/dL (31.0-37.0); Mean Platelet Volume 7.4; Monocytes # (A) 0.5 k/uL (0-1.0); Monocytes % (A) 6 %; Neutrophils # (A) 7.6 k/uL (1.3-7.7); Neutrophils % (A) 86 %; Platelet Count 266 k/uL (150-450); RDW 14.3 % (11.5-15.5)
[2022-02-25 02:33] LABS: African American GFR (CKD) >90 (>60 ml/min/1.73 sqM); Anion Gap 8 mmol/L; Blood Urea Nitrogen 8 mg/dL (7-17); Calcium 8.7 mg/dL (8.4-10.2); Carbon Dioxide 24 mmol/L (22-30); Chloride 102 mmol/L (98-107); Glucose 121 mg/dL (74-99); Non-African American GFR(CKD) >90 (>60 ml/min/1.73 sqM); Potassium 3.8 mmol/L (3.5-5.1); Sodium 134 mmol/L (137-145)
--- NOTE | 2022-02-25 02:50 | XR ---
EXAM: XR Chest, 2 Views CLINICAL HISTORY: ITS.REASON XR Reason: cough TECHNIQUE: Frontal and lateral views of the chest. COMPARISON: No relevant prior studies available. FINDINGS: Lungs: No consolidation or mass. Pleural space: No effusion. Heart: No cardiomegaly. Bones/joints: No acute findings. IMPRESSION: No acute cardiopulmonary process.
[2022-02-25] MEDS ORDERED: BEBTELOVIMAB (EUA) 175 MG/2 ML VIAL IV ONE (03:00)
--- NOTE | 2022-02-25 03:06 | ED ---
General Adult HPI - General Chief complaint: Upper Respiratory Infection Stated complaint: KOLE, Covid+ Time Seen by Provider: 02/25/22 01:18 Source: patient, RN notes reviewed Mode of arrival: ambulatory Limitations: no limitations - History of Present Illness Initial comments: 31-year-old female presents to the emergency department for evaluation of body aches, cough, and fever. Patient states she tested positive for Covid today. Reports close contact exposure 48 hours ago. Has not been vaccinated. Complains of intermittent shortness of breath though no difficulty breathing. Has been using her albuterol inhaler as needed with some relief. She is afebrile upon arrival. Denies dizziness, headache, sore throat, abdominal pain, nausea, vomiting, diarrhea, dysuria, or hematuria. - Related Data Home Medications Medication Instructions Recorded Confirmed Albuterol Sulfate [Proair Hfa] 2 puff INHALATION RT-Q6H PRN 09/02/21 09/02/21 Ergocalciferol (Vitamin D2) 1,250 mcg PO Q14D 09/02/21 09/02/21 [Drisdol (50,000 Iu)] Fluticasone Propionate [Flovent 1 puff INHALATION RT-BID 09/02/21 09/02/21 Hfa 110 mcg] Allergies Allergy/AdvReac Type Severity Reaction Status Date / Time iodine Allergy Swelling Verified 02/24/22 23:18 shellfish derived Allergy Swelling Verified 02/24/22 23:18 Review of Systems ROS Statement: Those systems with pertinent positive or pertinent negative responses have been documented in the HPI. ROS Other: All systems not noted in ROS Statement are negative. Past Medical History Past Medical History: Asthma Additional Past Medical History / Comment(s): anemia kidney stones and kidney failure History of Any Multi-Drug Resistant Organisms: None Reported Past Surgical History: Tubal Ligation Additional Past Surgical History / Comment(s): kidneys stone removal Additional Past Anesthesia/Blood Transfusion Reaction / Comment(s): slow to wake up Past Psychological History: Anxiety, Depression Smoking Status: Never smoker Past Alcohol Use History: None Reported Past Drug Use History: Marijuana - Past Family History Mother Family Medical History: Diabetes Mellitus, Hypertension General Exam Limitations: no limitations (Well-developed, well-nourished female in no acute distress. Initial temperature 98.1, pulse 117, respirations 20, blood pressure 144/88, pulse ox 97% on room air.) General appearance: alert, in no apparent distress Eye exam: Present: normal appearance, PERRL, EOMI. Absent: scleral icterus, conjunctival injection, periorbital swelling ENT exam: Present: normal exam, normal oropharynx, mucous membranes moist, TM's normal bilaterally Neck exam: Present: normal inspection. Absent: lymphadenopathy Respiratory exam: Present: normal lung sounds bilaterally. Absent: respiratory distress, wheezes, rales, rhonchi, stridor Cardiovascular Exam: Present: regular rate, normal rhythm, normal heart sounds. Absent: systolic murmur, diastolic murmur, rubs, gallop, clicks GI/Abdominal exam: Present: soft, normal bowel sounds. Absent: distended, tenderness, guarding, rebound, rigid Neurological exam: Present: alert, oriented X3, CN II-XII intact Psychiatric exam: Present: normal affect, normal mood Skin exam: Present: warm, dry, intact, normal color. Absent: rash Course Vital Signs 02/24/22 02/25/22 23:15 03:33 Temperature 98.1 F 98.7 F Pulse Rate 117 H 80 Respiratory 20 20 Rate Blood Pressure 144/88 134/80 O2 Sat by Pulse 97 97 Oximetry - Reevaluation(s) Reevaluation #1: 02/25/22 03:00 Patient tolerate mAB injection with no adverse side effect. She is resting comfortably. Vital signs stable. Will continue to monitor. Medical Decision Making - Medical Decision Making This is a 31-year-old female with a past medical history of asthma, fibromyalgia, chronic anemia, and isolated episode of kidney failure secondary to renal calculi presents to the emergency department for treatment of COVID-19. States she had a close contact exposure and developed symptoms today. Complains of fever, body aches, mild nausea and cough. Physical exam findings are unremarkable. Chest x-ray was negative. Laboratory studies show mild hyponatremia, low lymphocytes and a positive Covid. Patient was given IV fluids, Toradol, and Zofran with improvement. She is a candidate for the monoclonal antibody injection for which she was agreeable and tolerated well. Isolation precautions reviewed. Patient. Instructed to alternate Tylenol and Motrin for fever. Encouraged hydration and suggested electrolyte solution. She does have an albuterol inhaler when she is utilizing appropriately. Patient will be discharged home to follow up with her PCP for a recheck as needed. Return parameters discussed in detail. She verbalizes understanding and agrees with this plan. Attending: Tadeo. - Lab Data Result diagrams: 02/25/22 01:54 02/25/22 01:54 Lab Results 02/25/22 02/25/22 02/25/22 Range/Units 01:54 01:54 01:54 WBC 8.8 (3.8-10.6) k/uL RBC 4.89 (3.80-5.40) m/uL Hgb 13.6 (11.4-16.0) gm/dL Hct 40.8 (34.0-46.0) % MCV 83.4 (80.0-100.0) fL MCH 27.8 (25.0-35.0) pg MCHC 33.3 (31.0-37.0) g/dL RDW 14.3 (11.5-15.5) % Plt Count 266 (150-450) k/uL MPV 7.4 Neutrophils % 86 % Lymphocytes % 6 % Monocytes % 6 % Eosinophils % 1 % Basophils % 1 % Neutrophils # 7.6 (1.3-7.7) k/uL Lymphocytes # 0.5 L (1.0-4.8) k/uL Monocytes # 0.5 (0-1.0) k/uL Eosinophils # 0.1 (0-0.7) k/uL Basophils # 0.1 (0-0.2) k/uL Sodium 134 L (137-145) mmol/L Potassium 3.8 (3.5-5.1) mmol/L Chloride 102 (98-107) mmol/L Carbon Dioxide 24 (22-30) mmol/L Anion Gap 8 mmol/L BUN 8 (7-17) mg/dL Creatinine 0.83 (0.52-1.04) mg/dL Est GFR (CKD-EPI)AfAm >90 (>60 ml/min/1.73 sqM) Est GFR (CKD-EPI)NonAf >90 (>60 ml/min/1.73 sqM) Glucose 121 H (74-99) mg/dL Calcium 8.7 (8.4-10.2) mg/dL Coronavirus (PCR) Detected A (Not Detectd) - Radiology Data Radiology results: report reviewed, image reviewed Two-view chest x-ray was obtained. Report was reviewed in its entirety. Impression per Dr. Corley is no acute cardiopulmonary process. Disposition Clinical Impression: COVID-19 Disposition: HOME SELF-CARE Condition: Stable Instructions (If sedation given, give patient instructions): Coronavirus Disease 2019 (COVID-19) Additional Instructions: Increase fluids. Take Tylenol or Motrin as needed for body aches and/or fever. You should isolate for the next five days, then wear a mask for the subsequent 5 days went out in public. Consider taking vitamin C, vitamin D, and zinc. Follow-up with your PCP for a recheck via telephone or video visit in 2 days. Return to the emergency department with any new, worsening, or concerning symptoms. Is patient prescribed a controlled substance at d/c from ED?: No Referrals: Dmitriy Ramos MD [Primary Care Provider] - 1-2 days Time of Disposition: 03:43
[2022-02-25 03:34] VITALS: BP 134/80; PULSE 80; TEMP 98.7
== END 2022-02-25 03:43 | disposition home or self-care (01) ==
LOC: EC 23:01
DX: U07.1 COVID-19 (principal); J45.909 Unspecified asthma, uncomplicated; Z91.013 Allergy to seafood; Z91.041 Radiographic dye allergy status
CPT/HCPCS: 36415; 80048; 85025; 87635; 71046; 99284; 96374; 96375; 96361; J2405; J1885; Q0222

== ENCOUNTER 2024-07-15 08:47 | Day surgery (SDC) | payer OTHER ==
[2024-07-14 11:04] VITALS: BMI 39.9
[2024-07-15] MEDS: LIDOCAINE 1% (10MG/ML) FOR IV START INTRADERMA STA (09:35)
[2024-07-15] MEDS: IV FLUID CONTINUATION 1,000 ML IV ONE ×2 (09:35→11:13)
[2024-07-15] MEDS: LACTATED RINGERS 1,000 ML IV SCH (09:35)
[2024-07-15 09:49] VITALS: TEMP 97.2
[2024-07-15] MEDS ORDERED: MIDAZOLAM 2 MG/2 ML VIAL ONE (10:49)
--- NOTE | 2024-07-15 11:02 | P.PCN ---
Description of Procedure: Preprocedure diagnosis. Neurologic change. Postprocedure diagnosis. As above. Procedure done. Lumbar puncture and collection of cerebrospinal fluid. Anesthesia. IV sedation with Versed 2 mg. Local infiltration with anesthetics. Continuous pulse ox, EKG, blood pressure and verbal communication was maintained with the patient. Blood loss. None. Indication. Discussed the procedure, alternatives, complications which may include infection, nerve damage, paralysis, aggravation of the symptoms especially bleeding in the spine and posterior dural puncture headache with the patient. The patient understands and questions were answered. Procedure note. After getting concentration in the procedure room in sitting position. Back prepped with chlorhexidine and draped in sterile fashion. After injecting 3 mL of 1% lidocaine subcutaneously, a 22-gauge spinal needle was introduced at L3-4 interspace. Positive CSF, negative blood, negative paresthesia. CSF color was clear. Attempt x 1. CSF pressure was not measured. CSF was collected in 4 supplied sterol containers in sequence. Spinal needle was taken out and bandage was applied. Disposition. Patient tolerated the procedure well. No complication. Advised patient to lay flat one-hour postprocedure. The rest of the day today try to lay flat as much as possible. Next 3 days drink lots of fluid especially caffeinated beverages, and avoid constipation cough and doing strenuous physical work. Discharged home in stable condition.
[2024-07-15 11:51] VITALS: BP 139/83; PULSE 81; RESP 16
[2024-07-15 13:46] LABS: ALT 57 U/L (4-34); AST 46 U/L (14-36); Glucose 121 mg/dL (74-99)
[2024-07-15 14:00] LABS: Glucose,CSF 65 mg/dL (40-70); Total Protein,CSF 64 mg/dL (12-60)
[2024-07-15 14:03] LABS: T4, Free (Free Thyroxine) 1.31 ng/dL (0.78-2.19)
[2024-07-15 16:00] LABS: Appearance,CSF Clear; CSF Tube Number 4; Nucleated Cells, CSF 2 u/L (0-5); Red Blood Cell,CSF 1 u/L (0-10)
[2024-07-15 16:13] LABS: Rheumatoid Factor, Qnt <15 IU/mL (0-15)
[2024-07-15 19:25] LABS: Anti-DNA, DS unit <1.0 IU/mL; Anti-Smith Ab Interp Negative (Negative); DNA Double-Stranded Negative (Negative)
[2024-07-18 14:19] LABS: APTT 46 Sec(s) (<43); APTT 1:1 Mix 37 Sec(s) (<43); Dilute Russell Viper Venom 42 Sec(s) (<44)
[2024-07-19 11:52] LABS: IgG - CSF 4.1 mg/dL (0.0 - 3.4); IgG/Albumin Index (CSF) 0.51 (0.00 - 0.77)
[2024-07-19 13:37] LABS: VDRL, Qualitative CSF Nonreactive (Nonreactive)
== END 2024-07-15 12:05 | disposition home or self-care (01) ==
LOC: ORPAIN 08:47
PROVIDERS: ATTEND Pain Medicine Interventional Pain Medicine
DX: G98.8 Other disorders of nervous system (principal); Z91.041 Radiographic dye allergy status; Z91.013 Allergy to seafood
CPT/HCPCS: 81025; 86592 ×2; 86235 ×3; 84439; 84157; 82945; 82040; 82042; 82784; 83916; 83873; 82947; 84443; 84450; 84460; 85730; 86431; 85613; 89050; 86618; 86038; 86039; 86225; 62270; J2250

== ENCOUNTER 2024-07-18 03:53 | Emergency (ER) | payer OTHER ==
[2024-07-18 04:16] VITALS: RESP 18
--- NOTE | 2024-07-18 05:00 | ED ---
General Adult HPI - General Chief complaint: Back Pain/Injury Stated complaint: post op back pain Time Seen by Provider: 07/18/24 04:36 Source: patient Mode of arrival: wheelchair Limitations: no limitations - History of Present Illness Initial comments: Pt is a 33 y/o female presenting for back pain and weakness s/p LP this past Thursday. She states she had an LP done for evaluation of MS 2/2 numbness in her hands and feet bilaterally. Over the lat 2 days has had worsening back pain and today it became so strong that she had an episode of NBNB emesis and felt like she couldn't stand 2/2 pain making her legs feel weak. En route to the hospital patient states she had a single episode of a small amount of urinary incontinence upon trying to stand however is unsure of this was 2/2 pain or inability to hold her urine. She denies incontinence of stool but states she has not had a BM since prior to her procedure. Denies fevers, hx CA, IVDU, or saddle anesthesia, or abdominal pain. Pain intermittently radiates down back of both legs. Denies recent falls/trauma. Denies ANGUIANO, new numbness. - Related Data Home Medications Medication Instructions Recorded Confirmed Albuterol Inhaler [Ventolin Hfa 1 - 2 puff INHALATION Q6H PRN 07/14/24 07/14/24 Inhaler] Albuterol Sulfate [Proair 1 puff INHALATION Q6H PRN 07/14/24 07/14/24 Respiclick] Allergies Allergy/AdvReac Type Severity Reaction Status Date / Time iodine Allergy Swelling Verified 07/18/24 04:16 shellfish derived Allergy Swelling Verified 07/18/24 04:16 Review of Systems ROS Statement: Those systems with pertinent positive or pertinent negative responses have been documented in the HPI. ROS Other: All systems not noted in ROS Statement are negative. Past Medical History Past Medical History: Asthma, Fibromyalgia Additional Past Medical History / Comment(s): anemia, PAST HX kidney stones and kidney failure R/T KIDNEY STONES-RESOLVED AT THIS TIME, NUMBNESS TO HANDS AND FEET History of Any Multi-Drug Resistant Organisms: None Reported Past Surgical History: Orthopedic Surgery, Tubal Ligation, Uterine Ablation Additional Past Surgical History / Comment(s): kidneys stone removal, ORIF LT ANKLE, Past Anesthesia/Blood Transfusion Reactions: Previous Problems w/ Anesthesia Additional Past Anesthesia/Blood Transfusion Reaction / Comment(s): slow to wake up Past Psychological History: Anxiety, Depression Smoking Status: Former smoker - Past Family History Mother Family Medical History: Diabetes Mellitus, Hypertension General Exam - General Exam Comments Initial Comments: PE: CONSTITUTIONAL: No apparent distress, well appearing SKIN: Warm, dry, no jaundice, hives or petechiae, no swelling erythema or hematoma overlying area of recent LP/lumbar spine EYES: Pupils are equally round, extraocular movements intact without nystagmus, clear conjunctiva, non-icteric sclera HENT: Normocephalic, atraumatic, moist mucus membranes, oropharynx clear without exudates NECK: , Full range of motion, normal appearance, no midline TTP PULMONARY: Clear to auscultation without wheezes, rhonchi, or rales, normal excursion, no accessory muscle use and no stridor CARDIOVASCULAR: Regular rate, rhythm, normal S1 and S2. No appreciated murmurs, rubs or gallops. Strong radial pulses with intact distal perfusion. No lower extremity edema GASTROINTESTINAL: Soft, active bowel sounds throughout, non-tender, non- distended, no palpable masses, no suprapubic fullness, no rebound or guarding. No hepatosplenomegaly GENITOURINARY: Rectal exam performed JOSÉ LUIS Hall, at bedside, as automotive service manager good rectal tone, perianal sensation intact MUSCULOSKELETAL: Extremities have no gross deformity, no edema, redness, or swelling. No calf swelling. TTP lumbar spine near L 3/4 interspace, no overlying hematoma or fluctuance, 5/5 strength in all 4 extremities, sensation to pin prick and light touch intact in bilaral LE NEUROLOGIC:_a/o x 3, GCS 15, normal mentation and speech. Moves all extremities x 4 without motor or sensory deficit, though does have pain in back with hip flexion, 2+ patellar reflexes bilaterally, Downgoing babinski bilaterally PSYCHIATRIC:_normal mood and affect, thought process is clear and linear Limitations: no limitations Course Vital Signs 07/18/24 07/18/24 04:06 06:49 Temperature 98.2 F Pulse Rate 84 72 Respiratory 18 18 Rate Blood Pressure 144/96 147/83 O2 Sat by Pulse 98 Oximetry Medical Decision Making - Medical Decision Making Was pt. sent in by a medical professional or institution (, PA, FORMULA CLERK, urgent care, hospital, or skilled nursing...) When possible be specific @ -No Did you speak to anyone other than the patient for history (EMS, parent, family, police, friend...)? What history was obtained from this source @ -No Did you review nursing and triage notes (agree or disagree)? Why? @ -I reviewed and agree with nursing and triage notes Were old charts reviewed (outside hosp., previous admission, EMS record, old EKG, old radiological studies, urgent care reports/EKG's, skilled nursing records)? Report findings @Medical records reviewed- pt had LP performed on 07/15/24, reviewed procedure note, no post procedure complications documented Differential Diagnosis (chest pain, altered mental status, abdominal pain women, abdominal pain men, vaginal bleeding, weakness, fever, dyspnea, syncope, headache, dizziness, GI bleed, back pain, seizure, CVA, palpatations, mental health, musculoskeletal)? @ Differential Back Pain: Strain, zoster, cauda equina syndrome, epidural abscess, vertebral osteomyelitis, discitis, fracture, subluxation, disc herniation, DJD, spinal stenosis, kidney stone, this is not meant to be an all-inclusive list. EKG interpreted by me (3pts min.). @ -As above X-rays interpreted by me (1pt min.). @ -None done CT interpreted by me (1pt min.). @I see no evidence of fracture or malalignment on CT L-spine U/S interpreted by me (1pt. min.). @ -None done What testing was considered but not performed or refused? (CT, X-rays, U/S, labs)? Why? @ -None What meds were considered but not given or refused? Why? @ -None Did you discuss the management of the patient with other professionals (professionals i.e. , PA, FORMULA CLERK, lab, RT, psych nurse, public health social worker, home energy consultant supervisor, teacher, security vehicle patrol officer, case management manager)? Give summary @ -No Was smoking cessation discussed for >3mins.? @ -No Was critical care preformed (if so, how long)? @ -No Were there social determinants of health that impacted care today? How? (Homelessness, low income, unemployed, alcoholism, drug addiction, transportation, low edu. Level, literacy, decrease access to med. care, usp, rehab)? @ -No Was there de-escalation of care discussed even if they declined (Discuss DNR or withdrawal of care, Hospice)? @ -No What co-morbidities impacted this encounter? (DM, HTN, Smoking, COPD, CAD, Cancer, CVA, ARF, Chemo, Hep., AIDS, mental health diagnosis, sleep apnea, morbid obesity)? @ -None Was patient admitted / discharged? Hospital course, mention meds given and route, prescriptions, significant lab abnormalities, going to OR and other pertinent info. @ -Discharged- Patient is a pleasant 33-year-old female with a past medical history of anemia, suspected MS, presenting today for low back pain 2 days status post LP. On my assessment patient is well-appearing though painful appearing. Exam significant for midline tenderness palpation over L3-L4, no fluctuance, step-offs, masses palpated, no erythema overlying the area of patient's recent LP/ pain, lower extremities are neurovascularly intact, a rectal exam was performed that showed normal rectal tone and intact perineal sensation. Patient painful w/ position changes. Given recent LP and no flank pain if low suspicion for ureterolithiasi s the will obtain a UA. Beta HCG. In addition patient does endorse weakness in her lower extremities and did have an episode of urinary incontinence- though ths could have been 2/2 pain- so I did consider cauda equina syndrome, spinal epidural abscess, hematoma and discitis. She is afebrile. I discussed with tractor technician, [place] patient's recent procedure and consideration of CT lumbar spine with or without contrast as well as MRI lumbar spine. [place] was able to reach out to reading physician, Dr. Pichardo, recommends beginning with CT lumbar spine without contrast. I feel this is reasonable given overall reassuring physical exam. Discussed this plan of care with patient in addition to pain control. Patient is agreeable plan of care at this point. Postvoid residual bladder scan to be obtained as well. PS VR showed [address] lumbar spine showed no acute abnormalities. Patient's urine did show large leuk esterase however patient denies dysuria or urinary frequency. Urinalysis also shows squamous cells so I suspect this is a contaminated specimen. On reassessment updated patient to findings, patient endorses improvement of symptoms. She was able to ambulate. Given normal PSVR, no saddle anesthesia, LE neurovacularly intact and patient is afebrile I feel patient can be safely discharged home w/o further workup. She is comfortable w/ discharge at this point. I did attempt to have manager community development call and page the physician, Dr. Rodrigez, that performed her LP documented in procedure notes, prior to patient's discharge, however did not receive a response, as it was still very early in the morning. I discussed this with patient and she is comfortable discharge at this point. In my medical judgment there is currently no evidence of an immediate life- threatening or surgical condition. Discharge is therefore indicated at this time. Discharge treatment instructions, follow up instructions, and appropriate emergency department return precautions were discussed with the patient and/or medical decision maker. Patient and/or medical decision maker expressed understanding of and agreed with the treatment plan, follow up instructions, and emergency department return precaution. All patient's and/or medical decision maker's questions were answered. The patient was advised that a small risk still exists that a serious condition could develop and was therefore instructed to return to the ED for any changes in symptoms, persistent symptoms, inability to obtain proper follow-up or for any further concerns. Patient received verbal and written instructions for this condition. Undiagnosed new problem with uncertain prognosis? @ -No Drug Therapy requiring intensive monitoring for toxicity (Heparin, Nitro, Insulin, Cardizem)? @ -No Were any procedures done? @ -No Diagnosis/symptom? @ -Low back pain Acute, or Chronic, or Acute on Chronic? @Acute Uncomplicated (without systemic symptoms) or Complicated (systemic symptoms)? @Uncomplicated Side effects of treatment? @ -No Exacerbation, Progression, or Severe Exacerbation? @Exacerbation Poses a threat to life or bodily function? How? (Chest pain, [place], [place], pneumonia, PE, COPD, DKA, ARF, appy, cholecystitis, CVA, Diverticulitis, Homicidal, Suicidal, threat to staff... and all critical care pts) @ -No + - Lab Data Lab Results 07/18/24 07/18/24 Range/Units 04:57 04:57 Urine Color Colorless Urine Appearance Cloudy H (Clear) Urine pH 6.0 (5.0-8.0) Ur Specific Cement 1.018 (1.001-1.035) Urine Protein Trace H (Negative) Urine Glucose (UA) Negative (Negative) Urine Ketones Negative (Negative) Urine Blood Negative (Negative) Urine Nitrite Negative (Negative) Urine Bilirubin Negative (Negative) Urine Urobilinogen <2.0 (<2.0) mg/dL Ur Leukocyte Esterase Large H (Negative) Urine RBC 2 (0-5) /hpf Urine WBC 16 H (0-5) /hpf Ur Squamous Epith Cells 27 H (0-4) /hpf Urine Bacteria Rare H (None) /hpf Urine Mucus Occasional H (None) /hpf Urine HCG, Qual Not Detected (Not Detectd) Disposition Clinical Impression: Back pain Disposition: HOME SELF-CARE Condition: Good Instructions (If sedation given, give patient instructions): Acute Low Back Pain (ED) Additional Instructions: Every disease is a spectrum and a small chance still exists that a serious condition could develop, for this reason, please monitor yourself closely for new, changing or worsening symptoms, return of symptoms, difficulty walking or weakness in your legs, continence of urine or difficulty urinating, no bowel movement for greater than 5 days, incontinence of stool, numbness between your legs, fever, inability to tolerate/keep down fluids or your medications, inability to follow up with outpatient providers as instructed and should you experience these symptoms or should you have any further concerns for your wellbeing please return to the ED or call 911 immediately. PLEASE call your primary care physician as soon as possible to arrange / discuss plan for followup appointment. Appointment in the next 1-3 days is strongly encouraged if possible. PLEASE let us know here before you leave if there is anything further we can do to be of any assistance. Take care and feel Better! Is patient prescribed a controlled substance at d/c from ED?: No Referrals: Dmitriy Ramos [Primary Care Provider] - 1-2 days
[2024-07-18] MEDS: HYDROmorphone 1 MG/ML 1 ML SYRINGE IM STA (05:16)
[2024-07-18 05:31] LABS: Appearance,Urine Cloudy (Clear); Bacteria,Urine Rare /hpf; Bilirubin,Urine Negative (Negative); Blood,Urine Negative (Negative); Color,Urine Colorless; Glucose,Urine (UA) Negative (Negative); Ketones,Urine Negative (Negative); Leukocyte Esterase,Urine Large (Negative); Mucus,Urine Occasional /hpf; Nitrite,Urine Negative (Negative); Protein,Urine Trace (Negative); RBC,Urine 2 /hpf (0-5); Specific Gravity,Urine 1.018 (1.001-1.035); Squamous Epithelial Cell,Urine 27 /hpf (0-4); Urobilinogen,Urine <2.0 mg/dL (<2.0); WBC,Urine 16 /hpf (0-5)
--- NOTE | 2024-07-18 06:11 | CT ---
EXAMINATION TYPE: CT lumbar spine wo con DATE OF EXAM: 07/18/2024 6:01 AM COMPARISON: CLINICAL INDICATION: Female, 33 years old with history of recent LP for MS, now pain, incontinence. L E weakness; PHH, Pt states that she had a LP performed of Thursday. Pt states that she has severe pain at the site of injection. Pt states that she can barely stand. Pt states that she is in excruciating pain. Pt states that on the way to the ER she lost control of her bladder. Pt has chronic numbness an d tingling in her hands and feet. Pt states that the tingling in her feet has increased since the pro cedure. Pt states that she is nauseas and this started yesterday per pt. Pt states that she vomited t wice yesterday and once on the way to the ER. Pt states that she gets an electrical shock feeling in her back. Pt states that over the past two days she has had this happen about five times but mentione d that she typically experiences this at most twice a year. TECHNIQUE: Unenhanced CT of the lumbar spine was performed. Bone and soft tissue window settings are submitted as well as coronal and sagittal reconstructions. CT DLP: 1309.[address] CTDI: 33 mGy Automated exposure control for dose reduction was used. FINDINGS: There are 5 lumbar-type vertebra. Lumbar spine shows satisfactory alignment without evidenc e of acute fracture or dislocation. Mild disc space narrowing at L5-S1 level otherwise vertebral body heights and disc space heights are within normal limits. Spinal canal is grossly preserved. Paraspin al muscle bulk is maintained. There are multiple tiny central calculi scattered throughout the bilateral kidneys. There is partial visualization of the uterine fundus and tubal ligation clip along the left aspect. Visualized liver i s markedly heterogeneously hypodense consistent with fatty infiltrative hepatocellular disease. IMPRESSION: No acute findings in the lumbar spine. Spinal canal is maintained. [facility], , 07/18/2024 6:08 AM
[2024-07-18 06:50] VITALS: BP 147/83; PULSE 72
[2024-07-18 06:53] VITALS: TEMP 98.2
== END 2024-07-18 07:10 | disposition home or self-care (01) ==
LOC: EC 03:53
DX: M54.9 Dorsalgia, unspecified (principal); Z87.891 Personal history of nicotine dependence; Z88.8 Allergy status to other drugs, medicaments and biological substances; Z91.041 Radiographic dye allergy status
CPT/HCPCS: 51798; 81001; 81025; 72131; 99284; 96372; J1171